=== PATIENT | female | born 1940 | race African-American/Black ===

== ENCOUNTER 2019-07-12 16:08 | Emergency (ER) | payer MEDICARE, OTHER ==
[~2019-07-12] VITALS: Ht 162.6 cm; Wt 81.0 kg
[2019-07-12 16:15] VITALS: BP 139/46
[2019-07-12] MEDS ORDERED: ACETAMINOPHEN 325MG TABLET PO ONE (16:30)
== END 2019-07-12 18:13 | disposition home or self-care (01) ==
LOC: ER 16:08
DX: R51 Headache (principal); M54.2 Cervicalgia; M25.511 Pain in right shoulder; J45.909 Unspecified asthma, uncomplicated; E11.9 Type 2 diabetes mellitus without complications; I10 Essential (primary) hypertension; V43.52XA Car driver injured in collision with other type car in traffic accident, initial encounter; Y93.89 Activity, other specified; Y92.410 Unspecified street and highway as the place of occurrence of the external cause; Z88.6 Allergy status to analgesic agent; Z88.0 Allergy status to penicillin; Z88.2 Allergy status to sulfonamides; Z99.2 Dependence on renal dialysis
CPT/HCPCS: 99284

== ENCOUNTER 2021-06-29 09:39 | Emergency (ER) | payer MEDICARE, OTHER ==
[~2021-06-29] VITALS: Ht 157.5 cm; Wt 59.0 kg
[2021-06-29 10:21] VITALS: BP 139/82
[2021-06-29] MEDS ORDERED: CLOPIDOGREL 75MG TABLET PO ONE (10:30)
[2021-06-29] MEDS ORDERED: NITROGLYCERIN 0.4MG TABLET SL SL PRN (10:30)
== END 2021-06-29 11:23 | disposition left against medical advice (07) ==
LOC: ER 09:39
DX: R06.02 Shortness of breath (principal); E11.9 Type 2 diabetes mellitus without complications; I12.0 Hypertensive chronic kidney disease with stage 5 chronic kidney disease or end stage renal disease; E11.22 Type 2 diabetes mellitus with diabetic chronic kidney disease; N18.6 End stage renal disease; Z99.2 Dependence on renal dialysis; Z88.0 Allergy status to penicillin; Z88.2 Allergy status to sulfonamides
CPT/HCPCS: 93005; 99283